=== PATIENT | female | born 1970 | race Caucasian/White ===

== ENCOUNTER 2023-02-15 08:22 | Day surgery (SDC) | payer BC ==
[2023-02-14 14:05] VITALS: BMI 24.3
[2023-02-15] MEDS ORDERED: BUPIVACAINE HCL/EPINEPHRINE/PF 30 ML VIAL IJ ONE (11:09)
[2023-02-15] MEDS ORDERED: BUPIVACAINE HCL/PF 0.25% (2.5MG/ML) 10 ML VIAL ONE (11:09)
[2023-02-15] MEDS ORDERED: SUCCINYLCHOLINE CHLORIDE 200 MG/10 ML SYRINGE ONE (11:38)
[2023-02-15] MEDS ORDERED: PROPOFOL 40 ML ONE (11:38)
[2023-02-15] MEDS ORDERED: MIDAZOLAM HCL 2 MG/2 ML SINGLE DOSE VIAL ONE (11:38)
[2023-02-15] MEDS ORDERED: ROCURONIUM BROMIDE 50 MG/5 ML SYRINGE ONE (11:41)
[2023-02-15] MEDS ORDERED: ceFAZolin SODIUM 1 GM VIAL ONE (11:55)
[2023-02-15] MEDS ORDERED: ONDANSETRON 4 MG/2 ML VIAL ONE ×2 (11:55→13:42)
[2023-02-15] MEDS ORDERED: DEXAMETHASONE SOD PHOSPHATE 4 MG/1 ML VIAL ONE (11:55)
[2023-02-15] MEDS ORDERED: HYDROmorphone HCL/PF 1 MG/ML VIAL ONE ×2 (12:02→12:42)
[2023-02-15] MEDS ORDERED: SEVOFLURANE 250 ML BTL ONE (12:10)
[2023-02-15] MEDS ORDERED: MUPIROCIN 2% TOPICAL OINTMENT 22 GM TUBE ONE (12:30)
[2023-02-15] MEDS ORDERED: NEOSTIGMINE METHYLSULFATE 0.5 MG/1 ML - 10 ML MDV ONE (12:38)
[2023-02-15] MEDS ORDERED: FENTANYL CITRATE/PF 50 MCG/ML VIAL ONE ×2 (13:40→14:17)
[2023-02-15] MEDS ORDERED: ONDANSETRON 4 MG/2 ML VIAL IVPUSH ONE (13:44)
[2023-02-15] MEDS ORDERED: oxyCODONE HCL 5 MG TABLET ONE (15:32)
[2023-02-15] MEDS ORDERED: ONDANSETRON 4 MG/2 ML VIAL IVPUSH PRN (15:46)
[2023-02-15] MEDS ORDERED: oxyCODONE HCL 5 MG TABLET PO PRN (15:46)
[2023-02-15] MEDS ORDERED: LACTATED RINGERS SOLUTION 1,000 ML IV SCH (16:00)
[2023-02-15 16:03] VITALS: RESP 18
[2023-02-15] MEDS ORDERED: ONDANSETRON *ODT* 4 MG TABLET SL ONE (16:33)
[2023-02-15] MEDS ORDERED: ONDANSETRON *ODT* 4 MG TABLET ONE (16:34)
[2023-02-15 16:42] VITALS: BP 102/62; PULSE 63; TEMP 98
== END 2023-02-15 16:50 | disposition home or self-care (01) ==
LOC: FASU 08:22
PROVIDERS: ATTEND Plastic Surgery
PROC: 0HX0XZZ Transfer Scalp Skin, External Approach (ICD-10-PCS; principal; 2023-02-15 12:13)
DX: C44.41 Basal cell carcinoma of skin of scalp and neck (principal); S01.00XA Unspecified open wound of scalp, initial encounter; X58.XXXA Exposure to other specified factors, initial encounter; Y93.89 Activity, other specified; Y92.9 Unspecified place or not applicable
CPT/HCPCS: 81025; 88304-TC; 94760; Q0162